=== PATIENT | male | born 1995 | race American Indian/Alaskan Native ===

== ENCOUNTER 2018-02-14 07:13 | Emergency (ER) | payer SELFPAY ==
--- NOTE | 2018-02-14 09:11 | Emergency Department Report ---
Minor Respiratory - HPI Chief Complaint: Upper Respiratory Infection Stated Complaint: CHEST PAIN Duration: 2 Days Pain Location: Nose, Chest (chest discomfort with cough) Severity: moderate Minor Respiratory: Yes Rhinorrhea, Yes Able to Tolerate Fluids, Yes Cough, Yes Sick Contacts, Yes Chest Pain (discomfort with cough), No Sore Throat, No Ear Pain, No Hemoptysis, No Shortness of Breath, No Fever Other History: This is a 22-year-old -[place] male who presents with cough or from coughing and sneezing. He reports symptoms started yesterday when he got off work. He is complaining of a productive cough with clear mucus. Patient reports chest discomfort is worse with increased coughing and sneezing. 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 He has not taken anything for symptom relief. He denies fever, shortness of breath, body aches, nausea or vomiting, sore throat, or abdominal pain. ED Review of Systems ROS: Stated complaint: CHEST PAIN Other details as noted in HPI Constitutional: denies: chills, fever ENT: congestion. denies: ear pain, throat pain Respiratory: cough. denies: shortness of breath, wheezing Cardiovascular: chest pain (chest discomfort with cough). denies: palpitations Gastrointestinal: denies: abdominal pain, nausea, diarrhea Musculoskeletal: denies: back pain, joint swelling, arthralgia, myalgia Skin: denies: rash, lesions Neurological: denies: headache, weakness, paresthesias Psychiatric: denies: anxiety, depression ED Past Medical Hx - Past Medical History Previous Medical History?: No - Surgical History Past Surgical History?: No - Social History Smoking Status: Former Smoker Substance Use Type: None - Medications Home Medications: Home Medications Medication Instructions Recorded Confirmed Last Taken Type Benzonatate [Tessalon Perles] 100 mg PO Q8HR #20 capsule 02/14/18 Unknown Rx Fluticasone [Flonase] 1 spray NS QDAY #1 bottle 02/14/18 Unknown Rx Pseudoeph/Dm/Guaifen/Acetamin [Sm 1 each PO BID #10 capsule 02/14/18 Unknown Rx Day Time Cold-Flu Rel Sftgl] Minor Respiratory Exam - Exam General: Vital signs noted. No distress. Alert and acting appropriately. HEENT: Yes Pharyngeal Erythema (posterior pharynx, uvula midline), Yes Moist Mucous Membranes, Yes Rhinorrhea (turbinates mildly congestion), No Pharyngeal Exudates, No Conjuctival Injection, No Frontal Tenderness, No Maxillary Tenderness Ear: Neither TM Bulge, Neither TM Erythema, Neither EAC Pain, Neither EAC Discharge Neck: Yes Supple, No Adenopathy Lungs: Yes Good Air Exchange, Yes Cough, No Wheezes, No Ronchi, No Stridor, No Labored Respirations, No Retractions, No Use of Accessory Muscles, No Other Abnormal Lung Sounds Heart: Yes Regular, No Murmur Abdomen: Yes Normal Bowel Sounds, No Tenderness, No Peritoneal Signs Skin: No Rash, No Edema Neurologic: Alert and oriented, no deficits. Musculoskeletal: Unremarkable. ED Course Vital Signs 02/14/18 08:07 Temperature 99.1 F Pulse Rate 81 Respiratory 16 Rate Blood Pressure 121/76 O2 Sat by Pulse 100 Oximetry ED Medical Decision Making - Medical Decision Making 22 y.o. male that presents with URI symptoms. Patient examined by me and stable. No distress noted. Vitals normal. EKG obtained and dictated by attending normal sinus rhythm. No labs or radiographs obtained at this time. His findings are susceptible nasopharyngitis. Start Flonase, benzonatate, and Mucinex DM. Discharged home stable. Encouraged to do supportive care for URI. Follow up with Primary Care Provider in 2-3 days. Critical care attestation.: If time is entered above; I have spent that time in minutes in the direct care of this critically ill patient, excluding procedure time. ED Disposition Clinical Impression: Upper respiratory infection Qualifiers: URI type: acute nasopharyngitis (common cold) Qualified Code(s): J00 - Acute nasopharyngitis [common cold] Disposition: - TO HOME OR SELFCARE Is pt being admited?: No Does the pt Need Aspirin: No Condition: Stable Instructions: Upper Respiratory Infection (ED), Viral Syndrome (ED) Additional Instructions: Increase fluid intake and rest. Wash hands frequently. Continue taking Tylenol or ibuprofen to control fever. F/U with Primary Care Provider in 2-3 days. Return to ER if fever, SOB, or difficulty breathing after 48 hours of supportive care. Prescriptions: Benzonatate [Tessalon Perles] 100 mg PO Q8HR #20 capsule Fluticasone [Flonase] 1 spray NS QDAY #1 bottle Pseudoeph/Dm/Guaifen/Acetamin [ Day Time Cold-Flu Rel Sftgl] 1 each PO BID # 10 capsule Referrals: [facility] [Outside] - 3-5 Days [facility] [Outside] - 3-5 Days [facility] [Outside] - 3-5 Days Forms: Work/School Release Form(ED) Time of Disposition: 09:19 Print Language: STATELESS
[2018-02-14 09:27] VITALS: BP 118/71
== END 2018-02-14 09:27 | disposition home or self-care (01) ==
LOC: ED 07:13
DX: J06.9 Acute upper respiratory infection, unspecified (principal); Z87.891 Personal history of nicotine dependence
CPT/HCPCS: 93005; 93010; 99282